=== PATIENT | male | born 1995 | race Caucasian/White ===

== ENCOUNTER 2017-08-31 15:49 | Emergency (ER) | payer OTHER ==
[~2017-08-31] VITALS: Ht 182.9 cm; Wt 70.0 kg
[2017-08-31 15:59] VITALS: BP 148/91; PULSE 121; TEMP 36.8; O2SAT 100; Ht 182.9 cm; Wt 70.0 kg
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
== END 2017-08-31 16:12 | disposition home or self-care (01) ==
LOC: EDBD 15:49 → C.EDD 15:51
DX: S80.02XA Contusion of left knee, initial encounter (principal); V49.40XA Driver injured in collision with unspecified motor vehicles in traffic accident, initial encounter; Y92.488 Other paved roadways as the place of occurrence of the external cause